=== PATIENT | male | born 1960 | race Two or more races ===

== ENCOUNTER 2024-09-27 22:12 | Inpatient (IN) | payer OTHER ==
[~2024-09-27] VITALS: Ht 165.1 cm; Wt 58.5 kg
[2024-09-28 00:20] LABS: BASOPHILS # (AUTO) 0.1 K/uL (0.0-0.2); BASOPHILS % (AUTO) 0.9 % (0.0-2.0); EOSINOPHILS # (AUTO) 0.9 K/uL (0.0-0.7); EOSINOPHILS % (AUTO) 8.3 % (0.0-6.0); HEMATOCRIT 31 % (39-51); HEMOGLOBIN 10.5 g/dL (13.5-17.5); LYMPHOCYTES # (AUTO) 0.8 K/uL (0.8-4.8); LYMPHOCYTES % (AUTO) 7.3 % (20.0-44.0); MEAN CORPUSCULAR HEMOGLOBIN 35 PG (26.0-33.0); MEAN CORPUSCULAR HGB CONC 34 g/dl (31.0-36.0); MEAN CORPUSCULAR VOLUME 102 fL (80-96); MONOCYTES # (AUTO) 0.6 K/uL (0.1-1.30); MONOCYTES % (AUTO) 5.3 % (2.0-12.0); NEUTROPHILS # (AUTO) 8.3 K/uL (1.8-8.9); NEUTROPHILS % (AUTO) 78.2 % (43.0-81.0); PLATELET COUNT (AUTO) 207 K/uL (150-450); RED BLOOD CELL COUNT(AUTO) 2.99 MIL/uL (4.5-6.0); RED CELL DISTRIBUTION WIDTH 14.5 % (11.5-15.0); WHITE BLOOD COUNT (AUTO) 10.6 K/uL (4.3-11.0)
[2024-09-28 00:34] LABS: CALCIUM, SERUM 11.4 mg/dL (8.5-10.1); POTASSIUM 4.6 mmol/L (3.5-5.1)
[2024-09-28 00:38] LABS: CREATININE 12.9 mg/dL (0.6-1.3)
[2024-09-28 00:39] LABS: ALBUMIN 3.4 g/dL (3.4-5.0); BILIRUBIN,DIRECT 0.1 mg/dL (0.0-0.2); BILIRUBIN,TOTAL 0.5 mg/dL (0.2-1.0)
[2024-09-28 00:50] LABS: INR 0.97 (0.91-1.10); PARTIAL THROMBOPLASTIN TIME 22.9 SEC (24.3-34.3); PROTHROMBIN TIME 10.3 SECS (9.2-11.1)
[2024-09-28] MEDS ORDERED: MAG HYDROX/AL HYDROX/SIMETH 30 ML UDC PO PRN (03:30)
[2024-09-28] MEDS ORDERED: ONDANSETRON HCL/PF 4 MG/2 ML VIAL IVP PRN (03:30)
[2024-09-28] MEDS ORDERED: Z GUARD REMEDY 4 OZ OINT TP PRN (03:30)
[2024-09-28] MEDS ORDERED: ACETAMINOPHEN 325 MG TABLET PO PRN (03:30)
[2024-09-28] MEDS ORDERED: DEXTROSE 50%-WATER 50 ML DISP.SYRIN IV PRN (03:30)
[2024-09-28] MEDS ORDERED: MAGNESIUM HYDROXIDE 30 ML UDC PO PRN (03:30)
[2024-09-28 06:37] LABS: CALCIUM, SERUM 11.7 mg/dL (8.5-10.1); MAGNESIUM 3.4 mg/dL (1.8-2.4); PHOSPHORUS 7.1 mg/dL (2.5-4.9); POTASSIUM 5.4 mmol/L (3.5-5.1)
[2024-09-28 06:45] LABS: CREATININE 13.3 mg/dL (0.6-1.3)
[2024-09-28 08:10] VITALS: O2SAT 97
[2024-09-28] MEDS ORDERED: LORA-258 GT (08:16)
[2024-09-28] MEDS ORDERED: LOSA25TA27 GT (08:16)
[2024-09-28] MEDS ORDERED: DIPH25TA25 GT (08:16)
[2024-09-28] MEDS ORDERED: ACET-868 GT (08:16)
[2024-09-28] MEDS ORDERED: PANT40TA2 GT (08:16)
[2024-09-28] MEDS ORDERED: APIX5TAB GT (08:16)
[2024-09-28] MEDS ORDERED: FOLI0.8T23 GT (08:16)
[2024-09-28] MEDS ORDERED: AMIO200T5 GT (08:16)
[2024-09-28] MEDS ORDERED: BISA10SU11 RC (08:16)
[2024-09-28] MEDS ORDERED: AMLO5TAB4 GT (08:16)
[2024-09-28] MEDS ORDERED: POLY17PO4 GT (08:16)
[2024-09-28] MEDS ORDERED: NEPRO 1.8 GT (08:16)
[2024-09-28] MEDS ORDERED: NA P133E RC (08:16)
[2024-09-28] MEDS: PANTOPRAZOLE 40 MG VIAL IV SCH (09:17)
[2024-09-28 11:30] VITALS: BP 134/105; TEMP 97.5; O2SAT 100
[2024-09-28 12:00] VITALS: BP 138/74; TEMP 97.7; O2SAT 100
[2024-09-28] MEDS: BLOOD SUGAR DIAGNOSTIC 1 EACH STRIP IN SCH (12:38)
[2024-09-28] MEDS ORDERED: PAPAVERINE HCL 30 MG/ML 10 MLVIAL ONE (13:09)
[2024-09-28] MEDS ORDERED: HEMOSTATIC MATRIX 8 ML 1 EACH PAD MC ONE (13:09)
[2024-09-28] MEDS ORDERED: CELLULOSE,OXIDIZED 1 EA PACK MC ONE (13:09)
[2024-09-28] MEDS ORDERED: ANESTHESIA TRAY IN PYXIS 1 EA TRAY MC ONE (13:10)
[2024-09-28] MEDS ORDERED: ROPIVACAINE HCL 0.5% 5 MG/ML 30ML VIAL ONE (13:10)
[2024-09-28] MEDS ORDERED: LIDOCAINE 1% INJ 50 ML MDV IJ ONE (13:10)
[2024-09-28] MEDS ORDERED: CELLULOSE,OXIDIZED 1 EACH EACH MC ONE (13:10)
[2024-09-28] MEDS ORDERED: GELATIN SPONGE,ABSORBABLE 1 EA SPONGE TP ONE (13:11)
[2024-09-28] MEDS ORDERED: IOHEXOL 240MG/ML 50 ML IV ONE (13:12)
[2024-09-28] MEDS: VIT B CMPLX 3/FA/VIT C/BIOTIN 1 TAB TABLET PO SCH (13:30)
[2024-09-28] MEDS ORDERED: BISACODYL SUPP (10 MG) 10 MG/SUPP.RECT SUPP.RECT RC PRN (13:30)
[2024-09-28] MEDS ORDERED: LORAZEPAM 0.5 MG TABLET GT PRN (13:30)
[2024-09-28 14:58] LABS: BASOPHILS # (AUTO) 0.1 K/uL (0.0-0.2); BASOPHILS % (AUTO) 0.9 % (0.0-2.0); EOSINOPHILS # (AUTO) 0.8 K/uL (0.0-0.7); HEMATOCRIT 33 % (39-51); HEMOGLOBIN 11.1 g/dL (13.5-17.5); LYMPHOCYTES # (AUTO) 0.9 K/uL (0.8-4.8); LYMPHOCYTES % (AUTO) 8.3 % (20.0-44.0); MEAN CORPUSCULAR HEMOGLOBIN 35 PG (26.0-33.0); MEAN CORPUSCULAR HGB CONC 34 g/dl (31.0-36.0); MEAN CORPUSCULAR VOLUME 104 fL (80-96); MONOCYTES # (AUTO) 0.6 K/uL (0.1-1.30); MONOCYTES % (AUTO) 5.2 % (2.0-12.0); NEUTROPHILS # (AUTO) 8.8 K/uL (1.8-8.9); NEUTROPHILS % (AUTO) 78.6 % (43.0-81.0); PLATELET COUNT (AUTO) 207 K/uL (150-450); RED BLOOD CELL COUNT(AUTO) 3.16 MIL/uL (4.5-6.0); RED CELL DISTRIBUTION WIDTH 15.1 % (11.5-15.0); WHITE BLOOD COUNT (AUTO) 11.2 K/uL (4.3-11.0)
[2024-09-28] MEDS ORDERED: HEPARIN SODIUM, PORCINE 1,000 UNIT/ML VIAL ONE (15:34)
[2024-09-28] MEDS ORDERED: ETOMIDATE 2 MG/ML VIAL ONE (15:35)
[2024-09-28] MEDS ORDERED: FENTANYL PF 100MCG/2ML AMPUL ONE (15:35)
[2024-09-28] MEDS ORDERED: FAMOTIDINE/PF INJ 20 MG/2 ML VIAL IV ONE (15:36)
[2024-09-28 16:00] VITALS: BP 120/94; TEMP 98.2; O2SAT 97
[2024-09-28] MEDS ORDERED: CEFAZOLIN 1 GM ONE (16:00)
[2024-09-28] MEDS: AMIODARONE HCL 200 MG TABLET GT SCH (18:33)
[2024-09-28 20:00] VITALS: BP 117/67; TEMP 97.5; O2SAT 97
[2024-09-28] MEDS: NEPRO 1,000 ML BOTTLE GT PRN (22:24)
[2024-09-29] MEDS: ANCEF 1 GM/50 ML D5W IV SCH (00:51)
[2024-09-29] MEDS: INSULIN REGULAR, HUMAN 100 UNIT/ML 3 ML VIAL SQ PRN (00:53)
[2024-09-29 07:00] VITALS: BP 148/93; TEMP 97.7; O2SAT 99
[2024-09-29] MEDS: PANTOPRAZOLE 40 MG/PACK PACK NG SCH (09:18)
[2024-09-29] MEDS: LOSARTAN POTASSIUM 25 MG TABLET GT SCH (09:19)
[2024-09-29] MEDS: AMLODIPINE BESYLATE 5 MG TABLET GT SCH (09:20)
[2024-09-29 16:00] VITALS: BP 105/73; TEMP 97.5; O2SAT 99
== END 2024-09-29 18:40 | DRG 466 ==
LOC: ER 22:34 → MED 09-28 05:37
PROVIDERS: ADMIT Nurse Practitioner Acute Care; ATTEND Nurse Practitioner Acute Care
PROC: 0J2SXYZ Change Other Device in Head and Neck Subcutaneous Tissue and Fascia, External Approach (ICD-10-PCS; 2024-09-28)
PROC: B548ZZA Ultrasonography of Superior Vena Cava, Guidance (ICD-10-PCS; 2024-09-28)
PROC: B51WYZZ Fluoroscopy of Dialysis Shunt/Fistula using Other Contrast (ICD-10-PCS; 2024-09-28)
PROC: 5A1D70Z Performance of Urinary Filtration, Intermittent, Less than 6 Hours Per Day (ICD-10-PCS; principal; 2024-09-29)
DX: T82.510A Breakdown (mechanical) of surgically created arteriovenous fistula, initial encounter (principal); I12.0 Hypertensive chronic kidney disease with stage 5 chronic kidney disease or end stage renal disease; G93.40 Encephalopathy, unspecified; D68.59 Other primary thrombophilia; R53.2 Functional quadriplegia; N18.6 End stage renal disease; E11.22 Type 2 diabetes mellitus with diabetic chronic kidney disease; D53.1 Other megaloblastic anemias, not elsewhere classified; D63.8 Anemia in other chronic diseases classified elsewhere; Y92.129 Unspecified place in nursing home as the place of occurrence of the external cause; Z99.2 Dependence on renal dialysis; Z79.01 Long term (current) use of anticoagulants; Z79.899 Other long term (current) drug therapy; Y71.2 Prosthetic and other implants, materials and accessory cardiovascular devices associated with adverse incidents; Y83.2 Surgical operation with anastomosis, bypass or graft as the cause of abnormal reaction of the patient, or of later complication, without mention of misadventure at the time of the procedure; R13.10 Dysphagia, unspecified; N25.0 Renal osteodystrophy
CPT/HCPCS: 36415; 71045-TC; 80048-TC; 80076-TC; 82962-TC; 83735-TC; 84100-TC; 85025-TC; 85730-TC; 86850-TC; 90935-TC; A4223; A6253; A6403; C1750; C1769; G0378; J0690; J1644; J1815; J2405; J2440; J2470; J2704; J2795; J3010; J3490; J7030; J7060; Q9966